=== PATIENT | female | born 1980 | race Caucasian/White ===

== ENCOUNTER 2017-01-22 15:18 | Emergency (ER) | payer BC, OTHER ==
[2017-01-22 15:27] VITALS: BP 135/90; PULSE 97; RESP 16; TEMP 98.1; O2SAT 95
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
== END 2017-01-22 15:50 | disposition home or self-care (01) ==
LOC: CED 15:18
DX: S46.902A Unspecified injury of unspecified muscle, fascia and tendon at shoulder and upper arm level, left arm, initial encounter (principal); S16.1XXA Strain of muscle, fascia and tendon at neck level, initial encounter; V43.52XA Car driver injured in collision with other type car in traffic accident, initial encounter; Y92.410 Unspecified street and highway as the place of occurrence of the external cause; Y99.8 Other external cause status
CPT/HCPCS: G0463-PO

== ENCOUNTER → 2019-02-16 | Outpatient (CLI) | payer BC | LOC: FIMAGING 07:34 | PROVIDERS: ATTEND Obstetrics & Gynecology | DX: Z36.89 Encounter for other specified antenatal screening (principal); Z3A.20 20 weeks gestation of pregnancy; O09.522 Supervision of elderly multigravida, second trimester ==